=== PATIENT | female | born 1995 | race Caucasian/White ===

== ENCOUNTER → 2022-12-30 | Day surgery (SDC) | payer MEDICAID ==
[~2022-12-30] VITALS: Ht 160 cm; Wt 55.3 kg
[~2022-12-30] MED LIST: BUPIVACAINE HCL/PF 0.5% (5MG/ML) 30ML ONE; CEFAZOLIN SODIUM 1000MG/VIAL ONE; DEXAMETHASONE 4MG/ML 1ML VIAL ONE; FENTANYL CITRATE/PF 50MCG/ML 2ML VIAL IV PRN; FENTANYL CITRATE/PF 50MCG/ML 2ML VIAL ONE; KETOROLAC 30MG/ML VIAL ONE; LACTATED RINGERS 1,000 ML IV SCH; LIDOCAINE HCL 1% 10 MG/ML 10ML VIAL ONE; MEPERIDINE HCL/PF 25MG/ML CPJ IV PRN; MIDAZOLAM HCL 2 MG/2 ML VIAL ONE; ONDANSETRON HCL 4MG/2ML INJ ONE; PROPOFOL 200MG/20ML VIAL IV ONE; RISP05 PO; ROCURONIUM BROMIDE 10MG/ML VIAL 5ML IV ONE; SERT-422 PO; SKIN ADHESIVE 0.7 GM EA TOP ONE; SUCCINYLCHOLINE CHLORIDE 200MG/10ML IV ONE
[2022-12-30 07:28] LABS: UCG SCREEN NEGATIVE
[2022-12-30] MEDS: HYDROMORPHONE HCL/PF 2MG/ML CPJ IV PRN ×3 (09:22→10:33)
[2022-12-30] MEDS: HYDROCODONE/ACETAMINOPHEN 5/325MG TABLET PO NR ×2 (11:29→12:08)
[2022-12-30 12:08] VITALS: BP 102/54
== END | disposition home or self-care (01) ==
LOC: OR 06:45
PROVIDERS: ATTEND Surgery
DX: K80.10 Calculus of gallbladder with chronic cholecystitis without obstruction (principal); K21.9 Gastro-esophageal reflux disease without esophagitis; F41.9 Anxiety disorder, unspecified; Z79.899 Other long term (current) drug therapy; Z98.890 Other specified postprocedural states
CPT/HCPCS: 47562; 81025; 88304; J0330; J0690; J1100; J1170; J1885; J2250; J2405; J2704; J3010; J3490